=== PATIENT | female | born 1980 | race African-American/Black ===

== ENCOUNTER 2021-03-31 15:16 | Emergency (ER) | payer OTHER ==
[~2021-03-31] VITALS: Ht 165.1 cm; Wt 63.5 kg
[2021-03-31 16:14] LABS: ABSOLUTE BASOPHILS 0.1 thou/uL (0.0-0.2); ABSOLUTE LYMPHOCYTES 1.7 thou/uL (0.8-5.3); ABSOLUTE MONOCYTES 0.3 thou/uL (0.0-1.2); ABSOLUTE NEUTROPHILS 7.3 thou/uL (1.6-8.1); BASOPHILS 0.9 %; EOSINOPHILS 0.3 %; HEMATOCRIT 33.9 % (37.0-47.0); HEMOGLOBIN 10.8 gm/dL (12.0-15.0); LYMPHOCYTES 18.3 %; MCH 25.2 pg (26.0-34.0); MCHC 31.8 g/dL (28.0-37.0); MCV 79.2 fL (80.0-100.0); MONOCYTES 3.5 %; MPV 7.2 fl. (7.2-11.1); NUCLEATED RBCS 0 /100WBC; PLATELET COUNT* 391 thou/uL (150-400); RBC 4.28 mil/uL (4.20-5.00); RDW-CV 18.2 % (10.5-14.5); WBC 9.4 thou/uL (4.0-11.0)
[2021-03-31 16:20] LABS: CALCIUM 8.2 mg/dL (8.5-10.1); CREATININE 0.7 mg/dL (0.6-1.3); POTASSIUM 3.8 mmol/L (3.5-5.1)
[2021-03-31 16:25] LABS: ALBUMIN 3.2 g/dL (3.4-5.0); TOTAL BILIRUBIN 0.5 mg/dL (<0.1-1.0); TOTAL PROTEIN 7.4 g/dL (6.4-8.2)
[2021-03-31 16:31] LABS: ALCOHOL 111 mg/dL (<10); SALICYLATE 3.1 mg/dL (2.8-20.0)
[2021-03-31 16:33] LABS: ACETAMINOPHEN < 2 ug/mL (10-30)
[2021-03-31 17:28] VITALS: BP 150/85
== END 2021-03-31 17:28 | disposition home or self-care (01) ==
LOC: M.ERS 15:16
PROVIDERS: Family Medicine
DX: F10.920 Alcohol use, unspecified with intoxication, uncomplicated (principal); F32.9 Major depressive disorder, single episode, unspecified; Y90.5 Blood alcohol level of 100-119 mg/100 ml